=== PATIENT | male | born 1935 | race Caucasian/White ===

== ENCOUNTER → 2020-10-18 10:21 | Outpatient (CLI) | payer MEDICARE, SELFPAY ==
[2020-10-18] MEDS: COVID-19 VACC #1, MRNA(MOD) 100 MCG/0.5 ML VIAL IM (10:44)
== END ==
PROVIDERS: Visit Provider Internal Medicine
DX: Z23 Encounter for immunization (principal)
CPT/HCPCS: 0011A; 91301

== ENCOUNTER → 2020-11-16 09:48 | Outpatient (CLI) | payer MEDICARE, SELFPAY ==
[2020-11-16] MEDS: COVID-19 VACC #2, MRNA(MOD) 100 MCG/0.5 ML VIAL IM (09:58)
== END ==
PROVIDERS: Visit Provider Internal Medicine
DX: Z23 Encounter for immunization (principal)
CPT/HCPCS: 0012A; 91301

== ENCOUNTER 2021-08-12 13:19 | Emergency (ER) | payer MEDICARE, SELFPAY ==
[2021-08-12 13:34] VITALS: BP 165/79; PULSE 69; RESP 18; TEMP 36.6; O2SAT 99; BMI 25.8
--- NOTE | 2021-08-12 13:37 | DI.RAD.S_ITS ---
PROCEDURE: XR HIP W PEL IF DONE RT 2V INDICATIONS: fall with right hip pain. TECHNIQUE: AP pelvis with lateral view(s) of the right hip(s). COMPARISON: None. FINDINGS: Bones: No fractures or dislocations. Pelvic ring appears intact. No suspicious bony lesions. Soft tissues: The visualized bowel gas pattern is normal. No suspicious soft tissue calcifications. IMPRESSION: No visualized acute fracture or dislocation. However, if clinical concern and/or pain persist, short interval imaging followup in 7-10 days is recommended, as occult injury cannot be definitively excluded. Dictated by: Nuris Tsai M.D. on 08/12/2021 at 14:39 Approved by: Nuris Tsai M.D. on 08/12/2021 at 14:39
[2021-08-12 14:51] VITALS: BP 190/93; PULSE 88; RESP 16; O2SAT 98
--- NOTE | 2021-08-12 15:01 | ED.FALL ---
HPI - Fall <Fabiano Rizo PA-C - Last Filed: 08/12/21 16:38> General Chief Complaint: Fall Stated Complaint: GLF Time Seen by Provider: 08/12/21 14:46 Source: patient Mode of arrival: Ambulatory History of Present Illness HPI Narrative: Patient is an 86-year-old male presenting to the emergency department today for right hip pain. Patient states that he experienced a ground level fall approximately 1 week ago and has experienced right hip pain since then. He states that his pain worsened shortly after his fall, noting however that his pain decreased to 2-3 days following the fall. He presents today with worsening pain and states that his pain is exacerbated with movement and weight-bearing on the right lower extremity. Of note, patient states he did not his head or lose consciousness as result of the fall. No fever, chills, chest pain, cough, shortness of breath, nausea, vomiting, diarrhea, abdominal pain, dysuria, hematuria, numbness and tingling the bilateral lower extremities, or any other concerning symptoms reported. No further concerns were voiced at this time. Related Data Previous Rx's Medication Instructions Recorded baclofen 10 mg tablet 10 mg PO BID #20 tab 08/12/21 Allergies Allergy/AdvReac Type Severity Reaction Status Date / Time steroids Allergy Uncoded 08/12/21 13:34 Review of Systems <Fabiano Rizo PA-C - Last Filed: 08/12/21 16:38> Constitutional Constitutional: Denies chills, Denies fatigue, Denies fever(s), Denies frequent falls, Denies lethargy and Denies weakness Eyes Eyes: Denies loss of vision ENT Ears, Nose, Mouth, and Throat: Denies dizziness and Denies neck pain Cardiovascular Cardiovascular: Denies chest pain, Denies irregular heart rhythm, Denies lightheadedness, Denies palpitations, Denies dyspnea, Denies dyspnea on exertion and Denies orthopnea Respiratory Respiratory: Denies cough, Denies dyspnea, Denies dyspnea on exertion and Denies wheezing Gastrointestinal Gastrointestinal: Denies abdominal pain, Denies change in bowel habits, Denies diarrhea, Denies nausea and Denies vomiting Genitourinary Genitourinary: Denies hematuria, Denies flank pain, Denies urinary incontinence and Denies urinary urgency Musculoskeletal Musculoskeletal: Denies back pain, Reports arthralgias (Right hip), Denies muscle weakness, Denies neck pain, Denies numbness and Denies tingling Integumentary/Breasts Skin/Breast: Denies pruritus, Denies erythema, Denies rash and Denies wounds Neurologic Neurologic: Denies behavioral changes, Denies confusion, Denies dizziness, Denies frequent falls, Denies loss of vision, Denies numbness, Denies tingling and Denies weakness Psychiatric Psychiatric: Denies behavioral changes and Denies confusion Endocrine Endocrine: Denies fatigue and Denies palpitations Allergic/Immunologic Allergic/Immunologic: Denies wheezing Patient History <Fabiano Rizo PA-C - Last Filed: 08/12/21 16:38> Social History Smoking Status: Never smoker Smoking Status: Never smoker alcohol intake frequency: 3 or more drinks per day Substance Use Type: does not use Exam <Fabiano Rizo PA-C - Last Filed: 08/12/21 16:38> Narrative Exam Narrative: GENERAL: 86 year old patient appears stated age. Well-developed patient, in no acute distress. HEAD: Atraumatic. Normocephalic. EYES: Pupils equal round and reactive. Extraocular motions intact. No scleral icterus. No injection or drainage. ENT: Nose without bleeding, purulent drainage. Throat without erythema, tonsillar hypertrophy or exudate. Airway patent. NECK: Trachea midline. Non tender CARDIOVASCULAR: Regular rate and rhythm without murmurs, gallops, or rubs. RESPIRATORY: Clear to auscultation. Breath sounds equal bilaterally. No wheezes, rales, or rhonchi. GASTROINTESTINAL: Abdomen soft, non-tender, nondistended. EXTREMITIES: No edema or joint tenderness. Mild tenderness appreciated along the anterior right thigh. Pain elicited with resisted flexion of the right hip. BACK: Nontender without deformity or crepitance. No flank tenderness. NEURO: AOx3. SKIN: No rash or erythema of visible areas Initial Vital Signs Initial Vital Signs: Vital Signs Temperature 97.8 F 08/12/21 13:34 Pulse Rate 69 08/12/21 13:34 Respiratory Rate 18 08/12/21 13:34 Blood Pressure 165/79 H 08/12/21 13:34 Pulse Oximetry 99 08/12/21 13:34 <Brendon Badillo DO - Last Filed: 08/12/21 17:09> Initial Vital Signs Initial Vital Signs: Vital Signs Temperature 97.8 F 08/12/21 13:34 Pulse Rate 69 08/12/21 13:34 Respiratory Rate 18 08/12/21 13:34 Blood Pressure 165/79 H 08/12/21 13:34 Pulse Oximetry 99 08/12/21 13:34 Course <Fabiano Rizo PA-C - Last Filed: 08/12/21 16:38> Course Course Narrative: Back within administered. Right hip x-ray obtained. Orders Ordered: ED Orders 08/12/21 13:37 XR hip w pel if done RT 2V Stat Discontinued Medications Baclofen (Baclofen 10 Mg Tablet) 10 mg PO NOW ONE Stop: 08/12/21 15:01 Last Admin: 08/12/21 15:19 Dose: 10 mg Documented by: BLAYNE Vital Signs Vital signs: Vital Signs - 8 hr 08/12/21 13:34 08/12/21 14:51 Temperature 97.8 F Pulse Rate 69 88 Respiratory Rate 18 16 Blood Pressure 165/79 H 190/93 H Pulse Oximetry 99 98 <Brendon Badillo DO - Last Filed: 08/12/21 17:09> Orders Ordered: ED Orders 08/12/21 13:37 XR hip w pel if done RT 2V Stat Discontinued Medications Baclofen (Baclofen 10 Mg Tablet) 10 mg PO NOW ONE Stop: 08/12/21 15:01 Last Admin: 08/12/21 15:19 Dose: 10 mg Documented by: BLAYNE Vital Signs Vital signs: Vital Signs - 8 hr 08/12/21 13:34 08/12/21 14:51 Temperature 97.8 F Pulse Rate 69 88 Respiratory Rate 18 16 Blood Pressure 165/79 H 190/93 H Pulse Oximetry 99 98 MDM - Fall <Fabiano Rizo PA-C - Last Filed: 08/12/21 16:38> Imaging Data Extremity x-ray #1: Radiologist's Impression: PROCEDURE:? XR HIP W PEL IF DONE RT 2V ? INDICATIONS:? fall with right hip pain. ? TECHNIQUE:? AP pelvis with lateral view(s) of the right hip(s).? ? COMPARISON:? None. ? FINDINGS:? ? Bones:? No fractures or dislocations.? Pelvic ring appears intact.? No suspicious bony lesions.? ? Soft tissues:? The visualized bowel gas pattern is normal.? No suspicious soft tissue calcifications.? ? ? IMPRESSION:? No visualized acute fracture or dislocation. However, if clinical concern and/or pain persist, short interval imaging followup in 7-10 days is recommended, as occult injury cannot be definitively excluded. ? Dictated by: Nuris Tsai M.D. on 08/12/2021 at 14:39 ? ? Approved by: Nuris Tsai M.D. on 08/12/2021 at 14:39 ? MDM Narrative Medical decision making narrative: To consider fracture versus dislocation versus sprain versus strain. Overall physical examination, history, and imaging obtained in the emergency department today reassuring. Discussed results of x-ray with patient and informed him that no acute bony abnormality was identified. I recommended the patient continue to take Aleve for his pain, as long as he is taking his medication with food. Additionally, I recommended the patient use topical Voltaren gel over the painful area as needed. I have sent a prescription for baclofen to patient's preferred pharmacy. Patient expresses understanding and agrees to plan. I urged the importance of following up with his primary care provider for further evaluation. Strict return precautions were discussed with the patient prior to discharge. At this time patient states he would like to be discharged home and is stable for discharge. Discharge Plan Departure Patient Disposition: Home Clinical Impression: Acute pain of right hip Instructions: DI for Hip Pain Activity Restrictions/Additional Instructions: *You have been diagnosed with acute right hip pain *What to do: *Please continue to take your regular medications as directed. [X] New medication prescriptions sent to your pharmacy: [facility] - Baclofen [ ] New medication written as a paper prescription [ ] No new medications given *Please follow up with your primary care provider in 2-3 days, call for an appointment. Let them know you were seen in the Emergency Department and that we ask that you be seen in follow up. We will electronically transmit a record of today's note if your PCP is in our system. *Please apply Voltaren Gel to the painful area as needed. This is a topical nonsteroidal anti inflammatory medication to help alleviate your pain. *If you do not have a primary care provider please contact the [facility] Resource line at [phone]. They will ask some questions about your medical history and help get you set up with a doctor in the community. *Return to Emergency Department if you should have any new, worsening or concerning symptoms, such as fever greater than 101 F, shaking chills, worsening pain, persistent vomiting or other bothersome symptoms. Prescriptions: New baclofen 10 mg tablet 10 mg PO BID Qty: 20 0RF <Brendon Badillo, DO - Last Filed: 08/12/21 17:09> Cosign ED Attending Cosignature Attestation: Dr Badillo Co-Sign Statement: I was available for consultation during this patient's emergency department visit. This chart is signed by myself for administrative purposes only. I did not have direct contact with this patient during this visit. They were seen independently by the APC.
[2021-08-12] MEDS: BACLOFEN 10 MG TABLET PO (15:19)
== END 2021-08-12 15:25 | disposition home or self-care (01) ==
PROVIDERS: Emergency Provider Physician Assistant
DX: M25.551 Pain in right hip (principal); W18.30XA Fall on same level, unspecified, initial encounter
CPT/HCPCS: 73502; 99283

== ENCOUNTER → 2021-08-27 11:17 | Outpatient (CLI) | payer MEDICARE, SELFPAY ==
--- NOTE | 2021-08-27 | DI.RAD.S_ITS ---
PROCEDURE: XR HIP W PEL IF DONE RT 2V INDICATIONS: PAIN TECHNIQUE: 3 views of the hip were acquired. COMPARISON: [facility], CR, XR HIP W PEL IF DONE RT 2V, 08/12/2021, 13:48. FINDINGS: Bones: Transverse fracture through the mid right femoral neck with impaction and mild displacement. Femoral head has appropriate contour and resides in the acetabulum. Left proximal femur unremarkable. Pelvic ring intact. Soft tissues: No suspicious soft tissue calcifications or masses. Diffuse atherosclerotic vascular calcification. IMPRESSION: Impacted mid right femoral neck fracture Approved by: Syed Nolen M.D. on 08/27/2021 at 12:03
--- NOTE | 2021-08-27 11:25 | DI.RAD.S_ITS ---
PROCEDURE: XR LUMBAR SPINE 2-3V INDICATIONS: PAIN TECHNIQUE: 3 views of the lumbar spine were acquired. COMPARISON: None. FINDINGS: Bones: 5 [id number] vertebrae are present. There is normal bony alignment. No vertebral body compression fractures. No suspicious bony lesions. Diffuse disc space narrowing and hypertrophic facet joints are noted throughout the exam particularly in the lower lumbar spine. Soft tissues: Overlying bowel gas pattern is normal. No suspicious soft tissue calcifications. Atherosclerotic calcification in the abdominal aorta noted without evidence of aneurysm. IMPRESSION: Multilevel degenerative disc disease and arthropathy. No fracture or malalignment. Aortic atherosclerosis Approved by: Syed Nolen M.D. on 08/27/2021 at 11:58
--- NOTE | 2021-08-27 11:25 | DI.RAD.S_ITS ---
PROCEDURE: XR KNEE RT 3V INDICATIONS: PAIN TECHNIQUE: 3 views of the knee were acquired. COMPARISON: None. FINDINGS: Bones: No fractures or dislocations. No suspicious bony lesions. Moderate joint space narrowing noted in the medial and lateral compartments Soft tissues: No joint effusion. No suspicious soft tissue calcifications. Atherosclerotic vascular calcification noted. IMPRESSION: Moderate joint space narrowing and atherosclerotic vascular calcification Approved by: Syed Nolen M.D. on 08/27/2021 at 11:59
== END ==
PROVIDERS: PCP Student in an Organized Health Care Education/Training Program; Referring Provider Student in an Organized Health Care Education/Training Program; Visit Provider Student in an Organized Health Care Education/Training Program
DX: S72.031A Displaced midcervical fracture of right femur, initial encounter for closed fracture (principal); M51.36 Other intervertebral disc degeneration, lumbar region; M47.816 Spondylosis without myelopathy or radiculopathy, lumbar region; I70.0 Atherosclerosis of aorta; M25.551 Pain in right hip; M25.561 Pain in right knee
CPT/HCPCS: 72100; 73502; 73562

== ENCOUNTER 2021-08-30 21:45 | Inpatient (IN) | payer MEDICARE, SELFPAY ==
[2021-08-30 21:46] VITALS: BP 181/87; PULSE 77; RESP 20; TEMP 36.4; O2SAT 99
[2021-08-30 22:05] VITALS: PULSE 78; RESP 24; O2SAT 100
[2021-08-30 22:06] VITALS: BP 181/87; PULSE 76; RESP 19; O2SAT 99
--- NOTE | 2021-08-30 22:10 | ED_ITS ---
HPI - Extremity Injury (Lower) General Chief Complaint: Extremity Injury, Lower Stated Complaint: rt hip fracture Time Seen by Provider: 08/30/21 21:46 Source: patient Mode of arrival: Wheelchair History of Present Illness HPI Narrative: 86-year-old male nonsmoker with history of hypertension presents with a known right-sided hip fracture. Patient had been at the orthopedic office and had x- ray demonstrating a right hip fracture, patient was sent here to be admitted for surgery tomorrow. Patient had a fall in early July and presented for evaluation in the emergency department a week or so later. Imaging suggested no fracture and patient has been at home with his increasing right hip pain ever since. In his follow up a repeat image showed a very clear fracture. He denies any numbness, tingling or weakness. He denies any head neck or back pain. He has not take any blood thinners. He has severe pain with attempts at am bulation. He is otherwise well and free of complaint Related Data Home Medications Medication Instructions Recorded Confirmed telmisartan 40 mg tablet 40 mg PO DAILY 08/31/21 08/31/21 Allergies Allergy/AdvReac Type Severity Reaction Status Date / Time steroids Allergy Uncoded 08/12/21 13:34 Review of Systems Review of Systems Narrative: GENERAL: Denies chills, fatigue, malaise, fever, sweats. HEENT: Denies sinus pain, ear pain, sore throat, difficulty swallowing, dizziness. RESPIRATORY: Denies dyspnea, cough, wheezing, hemoptysis, sputum. CARDIOVASCULAR: Denies chest pain, palpitations, orthopnea, edema, GASTROINTESTINAL: Denies nausea, vomiting, abdominal pain, diarrhea, constipation, melena. : Denies dysuria, frequency, incontinence, hematuria, urinary retention. MUSCULOSKELETAL: See HPI SKIN: Denies rash, skin lesions, or other NEUROLOGIC: Denies weakness, headache, numbness, change in speech, confusion, seizures, incoordination. PSYCHIATRIC: No concerning psychosocial issues. 12 point review of systems is negative except for those stated above Patient History Social History household members: none Smoking Status: Never smoker alcohol intake: current Smoking Status: Never smoker alcohol intake frequency: 3 or more drinks per day Substance Use Type: does not use Exam Narrative Exam Narrative: GENERAL: [86] year old patient appears stated age. Well-developed patient, in mild distress. HEAD: Atraumatic. Normocephalic. EYES: Pupils equal round and reactive. Extraocular motions intact. No scleral icterus. No injection or drainage. ENT: Nose without bleeding, purulent drainage. Throat without erythema, tonsillar hypertrophy or exudate. Airway patent. NECK: Trachea midline. Non tender CARDIOVASCULAR: Regular rate and rhythm without murmurs, gallops, or rubs. RESPIRATORY: Clear to auscultation. Breath sounds equal bilaterally. No wheezes, rales, or rhonchi. GASTROINTESTINAL: Abdomen soft, non-tender, nondistended. EXTREMITIES: Severe right hip pain on palpation, closed, isolated and neurovascularly intact BACK: Nontender without deformity or crepitance. No flank tenderness. NEURO: AOx3. SKIN: No rash or erythema of visible areas Initial Vital Signs Initial Vital Signs: Vital Signs Temperature 97.6 F 08/30/21 21:46 Pulse Rate 77 08/30/21 21:46 Respiratory Rate 20 08/30/21 21:46 Blood Pressure 181/87 H 08/30/21 21:46 Pulse Oximetry 99 08/30/21 21:46 Course Orders Ordered: ED Orders 08/30/21 22:02 Basic Metabolic Panel Stat COVID19 -Nasal swab/Pre-Proc Stat Complete Blood Count AUTO DIFF Stat Acetaminophen (Acetaminophen 325 Mg Tablet) 650 mg PO Q6HR PRN PRN Reason: Fever/Mild Pain (1-3) Last Admin: 08/31/21 06:29 Dose: 650 mg Documented by: Admin: 08/30/21 23:57 Dose: 650 mg Documented by: SAURABH Hydrocodone Bitart/Acetaminophen (Hydrocodone/Acet 5/325 Tablet) 1 tab PO Q4HR PRN PRN Reason: Pain, Moderate (4-6) Sodium Chloride (Normal Saline 0.9%) 1,000 mls @ 100 mls/hr IV CONT CECILIO Last Admin: 08/30/21 23:58 Dose: 100 mls/hr Documented by: SAURABH Ibuprofen (Ibuprofen 600 Mg Tablet) 600 mg PO Q6HR PRN PRN Reason: Fever/Mild Pain (1-3) Ketorolac Tromethamine (Ketorolac 30 Mg/Ml Vial) 30 mg IV Q6HR PRN PRN Reason: Pain, Severe (7-10) Stop: 02/07/22 23:01 Last Admin: 08/31/21 00:25 Dose: 30 mg Documented by: SAURABH Morphine Sulfate (Morphine 2 Mg/Ml Inj) 2 mg IV Q4HR PRN PRN Reason: Pain, Moderate (4-6) Last Admin: 08/31/21 00:15 Dose: 2 mg Documented by: SAURABH Naloxone HCl (Naloxone 0.4 Mg/Ml Vial) 0.2 mg IV Q2MIN PRN PRN Reason: Opiate Reversal Ondansetron HCl (Ondansetron 4 Mg/2 Ml Inj) 4 mg IV Q8HR PRN PRN Reason: Nausea And Vomiting Oxycodone HCl (Oxycodone Ir 5 Mg Tablet) 5 mg PO Q6HR PRN PRN Reason: Pain, Moderate (4-6) Last Admin: 08/31/21 06:29 Dose: 5 mg Documented by: Admin: 08/30/21 23:57 Dose: 5 mg Documented by: SAURABH Discontinued Medications Morphine Sulfate (Morphine 2 Mg/Ml Inj) 2 mg IV NOW ONE Stop: 08/31/21 01:08 Last Admin: 08/31/21 05:22 Dose: Not Given Documented by: SAURABH Consultations Consultation #1: Dr. Paiz with Orthopedics referred the patient here, she is aware the patient plans to do his surgery tomorrow. She has been notified of his arrival and acceptance by Medicine Consultation #2: Medicine happy to accept the patient under service Vital Signs Vital signs: Vital Signs - 8 hr 08/30/21 21:46 Temperature 97.6 F Pulse Rate 77 Respiratory Rate 20 Blood Pressure 181/87 H Pulse Oximetry 99 MDM - Extremity Injury (Lower) Lab Data Result diagrams: 08/31/21 05:15 08/31/21 05:15 Labs: Lab Results 08/30/21 08/30/21 08/30/21 Range/Units 22:02 22:02 22:02 WBC 9.0 (4.5-11.0) X10^3/uL RBC 3.66 L (4.5-5.9) X10^6/uL Hgb 11.8 L (13.5-17.5) g/dL Hct 34.7 L (41-53) % MCV 95.0 (80-100) fL MCH 32.3 (26-34) PG MCHC 34.1 (30-36) % RDW 16.2 H (11.6-14.8) % Plt Count 435 H (150-400) X10^3/uL Neut % (Auto) 74.8 (50-75) % Lymph % (Auto) 11.5 L (25-40) % [place] % (Auto) 7.7 (3-14) % Eos % (Auto) 5.6 H (2-4) % Baso % (Auto) 0.4 (0-2) % Neut # (Auto) 6700 (5690-8198) /uL Lymph # (Auto) 1000 L (2311-2149) /uL [place] # (Auto) 700 (0-900) /uL Eos # (Auto) 500 H (0-450) /uL Baso # (Auto) 0 (0-100) /uL RBC Morphology See below Microcytosis 1+ H Spherocytes 1+ H Sodium 125 L (137-145) mmol/L Potassium 5.0 (3.4-5.1) mmol/L Chloride 95 L (98-107) mmol/L Carbon Dioxide 28 (22-32) mmol/L BUN 26 H (9-20) mg/dL Creatinine 1.14 (0.66-1.25) mg/dL Estimated GFR > 60.0 (>60) mL/min BUN/Creatinine Ratio 22.8 H (6-22) Glucose 106 (80-110) mg/dL Calcium 9.4 (8.4-10.2) mg/dL SARS-CoV-2 (PCR) Negative (Negative) Discharge Plan Departure Patient Disposition: Admitted As Inpatient Clinical Impression: Closed hip fracture, Acute hyponatremia Admit Date/Time: 08/30/21 22:42 Admit Provider: Melina Lee
[2021-08-30 22:21] LABS: BUN Creatinine Ratio 22.8 (6-22); Blood Urea Nitrogen 26 mg/dL (9-20); Calcium 9.4 mg/dL (8.4-10.2); Carbon Dioxide 28 mmol/L (22-32); Chloride 95 mmol/L (98-107); Estimated Glomerular Filt Rate > 60.0 mL/min (>60); Glucose 106 mg/dL (80-110); HEMOLYSIS < 15 (0-50); Sodium 125 mmol/L (137-145)
[2021-08-30 22:29] LABS: Basophils Absolute Auto 0 /uL (0-100); Basophils Percent Auto 0.4 % (0-2); COVID19 -Nasal RAPID Negative (Negative); Eosinophils Absolute Auto 500 /uL (0-450); Eosinophils Percent Auto 5.6 % (2-4); Hematocrit 34.7 % (41-53); Hemoglobin 11.8 g/dL (13.5-17.5); Lymphocytes Absolute Auto 1000 /uL (1100-4500); Lymphocytes Percent Auto 11.5 % (25-40); Mean Corpuscular HGB Conc 34.1 % (30-36); Mean Corpuscular Hemoglobin 32.3 PG (26-34); Monocytes Absolute Auto 700 /uL (0-900); Monocytes Percent Auto 7.7 % (3-14); Neutrophils Absolute Auto 6700 /uL (1500-7000); Neutrophils Percent Auto 74.8 % (50-75); Platelet Count 435 X10^3/uL (150-400); Red Blood Cell Count 3.66 X10^6/uL (4.5-5.9); Red Cell Distribution Width 16.2 % (11.6-14.8)
[2021-08-30 22:30] VITALS: BP 198/86; PULSE 72; RESP 14; O2SAT 96
[2021-08-30 22:30] LABS: Add Manual Diff / Slide Review SLIDE REVIEW; Microcytosis 1+; Spherocytes 1+
[2021-08-30 23:45] VITALS: BP 206/91; PULSE 76; RESP 18; TEMP 36.6; O2SAT 96; BMI 25.9
[2021-08-30] MEDS: ACETAMINOPHEN 325 MG TABLET 650 MG PO (23:57)
[2021-08-30] MEDS: OXYCODONE IR 5 MG TABLET PO (23:57)
[2021-08-30] MEDS: SODIUM CHLORIDE 0.9% 1,000 ML 100 ML IV (23:58)
[2021-08-31] VITALS (20 sets, daily range): BP systolic 127–178; BP diastolic 58–85; PULSE 59–86; RESP 7–18; TEMP 36.2–36.7; O2SAT 93–100; BMI 25.9
[2021-08-31] MEDS: MORPHINE 2 MG/ML INJ IV (00:15)
[2021-08-31] MEDS: KETOROLAC 30 MG/ML VIAL IV (00:25)
[2021-08-31 05:58] LABS: Add Manual Diff / Slide Review NO; Basophils Absolute Auto 100 /uL (0-100); Basophils Percent Auto 1.3 % (0-2); Eosinophils Absolute Auto 400 /uL (0-450); Eosinophils Percent Auto 6.4 % (2-4); Hemoglobin 10.8 g/dL (13.5-17.5); Lymphocytes Absolute Auto 1200 /uL (1100-4500); Lymphocytes Percent Auto 18.7 % (25-40); Mean Corpuscular HGB Conc 33.9 % (30-36); Mean Corpuscular Hemoglobin 32.1 PG (26-34); Mean Corpuscular Volume 94.9 fL (80-100); Monocytes Absolute Auto 600 /uL (0-900); Monocytes Percent Auto 9.7 % (3-14); Neutrophils Absolute Auto 4100 /uL (1500-7000); Neutrophils Percent Auto 63.9 % (50-75); Platelet Count 360 X10^3/uL (150-400); Red Blood Cell Count 3.37 X10^6/uL (4.5-5.9); Red Cell Distribution Width 16.1 % (11.6-14.8); White Blood Cell Count 6.4 X10^3/uL (4.5-11.0)
[2021-08-31 06:04] LABS: Alanine Aminotransferase 19 IU/L (<50); Albumin 3.2 g/dL (3.5-5.0); Albumin Globulin Ratio 1.1 (1.0-2.8); Alkaline Phosphatase 64 U/L (38-126); Aspartate Aminotransferase 28 IU/L (17-59); BUN Creatinine Ratio 20.6 (6-22); Bilirubin Total 0.6 mg/dL (0.2-1.3); Blood Urea Nitrogen 22 mg/dL (9-20); Calcium 9.1 mg/dL (8.4-10.2); Carbon Dioxide 29 mmol/L (22-32); Chloride 96 mmol/L (98-107); Estimated Glomerular Filt Rate > 60.0 mL/min (>60); Globulin 2.9 g/dL (1.7-4.1); Glucose 98 mg/dL (80-110); HEMOLYSIS < 15 (0-50); Potassium 4.3 mmol/L (3.4-5.1); Sodium 127 mmol/L (137-145); Total Protein 6.1 g/dL (6.3-8.2)
--- NOTE | 2021-08-31 06:21 | PM.HP.1 ---
History of Present Illness History of Present Illness Date Patient Seen: 08/31/21 Time Patient Seen: 06:21 Chief complaint: rt hip fracture Narrative: 86 yo male admitted for right hip fracture. Had an initial 1 week delayed presentation to the ED after falling hard onto his buttocks while getting out of a car. Complained of right hip pain; X-ray on 08/12/20 negative for fracture. At his outpatient follow-up appointment, reported that his hip pain had worsened and that his lower back and knee were also hurting. X-rays of all three areas completed and significant for impacted femoral neck fracture. Orthopedics was consulted on-call and patient advised to return to the hospital for admission and surgery. Patient complaining of ongoing pain in his right hip. Nursing reports that he had uncontrolled pain after being transferred from [facility] to hospital bed, has required significant narcotics overnight. Has been NPO, on bedrest. No chest pain, palpitations, shortness of breath, or nausea. Afebrile. 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 Patient History Family & Social History Social History: household members none Prior Living Arrangements House Safety & Behavioral: Feels Safe in Current Yes Environment Been Physically Hurt or No Threatened By a Person Suicidal Ideation Description None Suicide Plan Description No Plan Tobacco & Substance use: Smoking Status Never smoker alcohol intake current alcohol intake frequency 0-2 drinks per day Substance Use Type does not use Meds Home Medications and Allergies Home Medications Medication Instructions Recorded Confirmed Type telmisartan 40 mg tablet 40 mg PO DAILY 08/31/21 08/31/21 History Allergies Allergy/AdvReac Type Severity Reaction Status Date / Time steroids Allergy Uncoded 08/12/21 13:34 Review of Systems Review of Systems Narrative: All remaining ROS were reviewed and negative except as addressed. Exam Vital Signs (past 8 hours): - 08/30/21 22:30 08/30/21 23:45 08/31/21 00:00 Temperature 97.9 F Pulse Rate 72 76 Respiratory Rate 14 18 Blood Pressure 198/86 H 206/91 H Pulse Oximetry 96 96 96 08/31/21 01:45 08/31/21 02:01 08/31/21 04:00 Temperature Pulse Rate Respiratory Rate Blood Pressure 167/81 H Pulse Oximetry 96 96 Oxygen Delivery Method Room Air Oxygen Flow Rate 0 Narrative Exam Narrative: GENERAL: Alert and oriented, appearing stated age and in no acute distress. HEENT: Head normocephalic/atraumatic. Extraocular movements intact. LUNGS: Clear to ausculation bilaterally, no wheezes, rhonchi or rales. CV: Normal S1 and S2 with regular rate and rhythm, no audible murmurs, rubs or gallops. ABDOMEN: Soft, non-tender, non-distended, no organomegaly. Positive bowel sounds. EXTREMITIES: Tender to palpation over right hip, motion not tested secondary to pain. NEURO: Cranial nerves II through XII grossly intact, no focal deficits. PSYCH: Alert and oriented x 3. SKIN: No concerning lesions. Objective Labs Result Diagrams: 08/31/21 05:15 08/31/21 05:15 Labs: Laboratory Results - last 24 hr 08/30/21 08/30/21 08/30/21 22:02 22:02 22:02 WBC 9.0 RBC 3.66 L Hgb 11.8 L Hct 34.7 L MCV 95.0 MCH 32.3 MCHC 34.1 RDW 16.2 H Plt Count 435 H Neut % (Auto) 74.8 Lymph % (Auto) 11.5 L [place] % (Auto) 7.7 Eos % (Auto) 5.6 H Baso % (Auto) 0.4 Neut # (Auto) 6700 Lymph # (Auto) 1000 L [place] # (Auto) 700 Eos # (Auto) 500 H Baso # (Auto) 0 RBC Morphology See below Microcytosis 1+ H Spherocytes 1+ H Sodium 125 L Potassium 5.0 Chloride 95 L Carbon Dioxide 28 BUN 26 H Creatinine 1.14 Estimated GFR > 60.0 BUN/Creatinine Ratio 22.8 H Glucose 106 Calcium 9.4 Total Bilirubin AST ALT Alkaline Phosphatase Total Protein Albumin Globulin Albumin/Globulin Ratio SARS-CoV-2 (PCR) Negative 08/31/21 08/31/21 05:15 05:15 WBC 6.4 RBC 3.37 L Hgb 10.8 L Hct 32.0 L MCV 94.9 MCH 32.1 MCHC 33.9 RDW 16.1 H Plt Count 360 Neut % (Auto) 63.9 Lymph % (Auto) 18.7 L [place] % (Auto) 9.7 Eos % (Auto) 6.4 H Baso % (Auto) 1.3 Neut # (Auto) 4100 Lymph # (Auto) 1200 [place] # (Auto) 600 Eos # (Auto) 400 Baso # (Auto) 100 RBC Morphology Microcytosis Spherocytes Sodium 127 L Potassium 4.3 Chloride 96 L Carbon Dioxide 29 BUN 22 H Creatinine 1.07 Estimated GFR > 60.0 BUN/Creatinine Ratio 20.6 Glucose 98 Calcium 9.1 Total Bilirubin 0.6 AST 28 ALT 19 Alkaline Phosphatase 64 Total Protein 6.1 L Albumin 3.2 L Globulin 2.9 Albumin/Globulin Ratio 1.1 SARS-CoV-2 (PCR) Assessment & Plan Assessment & Plan narrative: 1. Right femoral neck fracture, acute Plan: Dr. Paiz consulting, surgery today. 2. Hyponatremia, chronic, baseline 130 Plan: Patient is just below his usual baseline. Have been giving NS at 100 cc overnight, sodium trending up, will continue to trend labs. 3. Hypertension, acute on chronic secondary to pain Plan: Patient has previously been on telmisartan but has not required that for over 5 years. Baseline BP is 130-140/80. Will treat pain and trend BPs. If needing coverage, will plan for diltiazem as he has had some atrial bigeminy in the past that has been worked up by Dr. Boothe. Goal BP < 140/90. Will update echo after discharge. 4. Anemia, normocytic/normochromic, new Plan: Will start work-up with next lab draw. 5. Protein calorie malnutrition, new Plan: Nutrition consult to maximize healing. Code: Full FEN: NS at 100 cc DVT prophylaxis: SCDs COVID: negative Dispo: Anticipate 2 nights. Quality VTE Deep Vein Thrombosis/Pulmonary Embolism Present on Admission: No
[2021-08-31] MEDS: OXYCODONE IR 5 MG TABLET PO (06:29)
[2021-08-31] MEDS: ACETAMINOPHEN 325 MG TABLET 650 MG PO ×3 (06:29→21:14)
--- NOTE | 2021-08-31 07:37 | PC.ADMIT ---
[id number] Admission Note: Pt arrived on floor in minimal distress, no complaints of pain. Moved from rney to bed using slider board. Pain immediately increased. BP on admit 206/91, other VS WNL. Asymptomatic. Pain continued to increased, gave 5 mg oxy @ 2357 and 650 mg tylenol @ 2357. Pt's pain increased. Gave 2 mg IV morphine at 0015. No change in pain. Gave 30 mg toradol IVP at 0025. No change in pain. BP 229/110. Contacted aircraft air conditioning mechanic, rec'd order for 1 time dose of 2 mg morphine. Entered pt's room to reassess, pt reports pain greatly reduced. This RN discussed holding additional dose of morphine, pt agreeable. BP 167/81. The patient,Melchor Schofield,86 y/o, was given written information regarding hospital policies, unit procedures and contact persons. Patient's smoking status: Never smoker. Vital Signs - 8 hr 08/30/21 23:45 08/31/21 00:00 08/31/21 01:45 Temperature 97.9 F Pulse Rate 76 Respiratory Rate 18 Blood Pressure 206/91 H 167/81 H Pulse Oximetry 96 96 08/31/21 02:01 08/31/21 04:00 08/31/21 05:25 Temperature 98.1 F Pulse Rate 86 Respiratory Rate 18 Blood Pressure 166/85 H Pulse Oximetry 96 96
--- NOTE | 2021-08-31 08:44 | CM.DANOTE ---
DCP: Case received, EMR reviewed and met with patient. Introduced self and role. Was able to obtain information regarding patient's baseline activity status as well as his current living situation. DCP assessment completed with information currently available. Patient is an 86 year old male who admitted yesterday evening to the care of the hospitalist team. PCP: Dr. Lee. Payer: confirmed: Medicare/[employer]. Patient came to the hospital via private vehicle sent by his primary care provider for a hip fracture. According to notes, patient had a fall approximately on Aug 02, he slipped getting out of his car onto his buttocks. He was ambulatory, but had increased pain. He had an x-ray near that time which showed no fracture. He developed more pain as time went on, and had seen his primary care provider and diagnosed with impacted femoral neck fracture. Patient will be having surgery for repair. Met with patient in his room. He is alert and oriented, pleasant. Confirmed that he resides in [place] alone, he is a . He drives at his baseline, is independent, and does use a cane as needed. Asked patient if anyone could stay with him post surgery, and he mentioned that he is planning on staying with his daughter, Mercy, who lives in [facility]. He indicated that he also has a son, but he does not drive. P: DCP to continue to follow. Will see how patient does post surgery and with P.T. He does have Medicare, if [place] [facility] is needed. Sandra Keller RN/Anode Worker Discharge Planning/Care Management CM Discharge Assessment Start: 08/31/21 08:42 Freq: Status: Active Protocol: Document 08/31/21 08:42 (Rec: 08/31/21 08:44 [id number]) Discharge Planning Assessment Assigned Bursar Sandra Keller RN/Anode Worker Advance Directives? Yes Advance Directives on File Yes History Provided By Patient,Medical Record Prior Living Arrangements House Household Members none Type of transporation used prior to Drives own vehicle admit Independent with ADL's Yes Is patient alert and oriented? Yes DME Already Rented / Owned FWW / Walker,Cane Discharge Plan Home Transportation Arrangement Family. If patient does need skilled, facility Referrals Initiated Other Additional Comment Patient has not yet had surgery. Will see how he does after surgery, and with P.T. post surgical. Whiteboard Updated in Patient Room with Yes name and ext. # of Bursar Review Status In Process Next Review Type Continued Stay Review
--- NOTE | 2021-08-31 08:50 | PM.HP.1 ---
History of Present Illness History of Present Illness Date Patient Seen: 08/31/21 Time Patient Seen: 09:00 Date of Onset of Symptoms: 08/12/21 Chief complaint: rt hip fracture Narrative: This is 86 year old and who fell on the ice on 2021. He was seen at the emergency room sent home. Had repeat x-rays on 08/27/2021. Orthopedic consultation was requested last night from his primary care practitioner. X-rays were reviewed which showed evidence of a right femoral neck fracture with gross with the placement. I recommended that he report to the emergency room for probable admission. He notes Patient History Family & Social History Social History: household members none Prior Living Arrangements House Safety & Behavioral: Feels Safe in Current Yes Environment Been Physically Hurt or No Threatened By a Person Suicidal Ideation Description None Suicide Plan Description No Plan Tobacco & Substance use: Smoking Status Never smoker alcohol intake current alcohol intake frequency 0-2 drinks per day Substance Use Type does not use Meds Home Medications and Allergies Home Medications Medication Instructions Recorded Confirmed Type telmisartan 40 mg tablet 40 mg PO DAILY 08/31/21 08/31/21 History Allergies Allergy/AdvReac Type Severity Reaction Status Date / Time steroids Allergy Uncoded 08/12/21 13:34 Review of Systems Review of Systems Narrative: Denies any recent numbness or tingling, has not been lightheaded short of breath or had any new chest pain. He has been having significant problems ambulating due to right hip pain. Exam Vital Signs (past 8 hours): - 08/31/21 01:45 08/31/21 02:01 08/31/21 04:00 Temperature Pulse Rate Respiratory Rate Blood Pressure 167/81 H Pulse Oximetry 96 96 08/31/21 05:25 Temperature 98.1 F Pulse Rate 86 Respiratory Rate 18 Blood Pressure 166/85 H Pulse Oximetry Oxygen Delivery Method Room Air Oxygen Flow Rate 0 Narrative Exam Narrative: HEENT is benign, lungs clear, cor shows irregular beats but adequately controlled rate, no murmur, abdomen soft and benign, is alert he is oriented he has a supple neck, right lower extremity shows shortening of the right lower extremity he can fire his toe flexors and extensors he does have pain with right hip range of motion Luana skin shows a generalized rash which she says is chronic and nerve related, calves are soft bilaterally Objective Labs Result Diagrams: 08/31/21 05:15 08/31/21 05:15 Labs: Laboratory Results - last 24 hr 08/30/21 08/30/21 08/30/21 22:02 22:02 22:02 WBC 9.0 RBC 3.66 L Hgb 11.8 L Hct 34.7 L MCV 95.0 MCH 32.3 MCHC 34.1 RDW 16.2 H Plt Count 435 H Neut % (Auto) 74.8 Lymph % (Auto) 11.5 L [place] % (Auto) 7.7 Eos % (Auto) 5.6 H Baso % (Auto) 0.4 Neut # (Auto) 6700 Lymph # (Auto) 1000 L [place] # (Auto) 700 Eos # (Auto) 500 H Baso # (Auto) 0 RBC Morphology See below Microcytosis 1+ H Spherocytes 1+ H Sodium 125 L Potassium 5.0 Chloride 95 L Carbon Dioxide 28 BUN 26 H Creatinine 1.14 Estimated GFR > 60.0 BUN/Creatinine Ratio 22.8 H Glucose 106 Calcium 9.4 Total Bilirubin AST ALT Alkaline Phosphatase Total Protein Albumin Globulin Albumin/Globulin Ratio SARS-CoV-2 (PCR) Negative 08/31/21 08/31/21 05:15 05:15 WBC 6.4 RBC 3.37 L Hgb 10.8 L Hct 32.0 L MCV 94.9 MCH 32.1 MCHC 33.9 RDW 16.1 H Plt Count 360 Neut % (Auto) 63.9 Lymph % (Auto) 18.7 L [place] % (Auto) 9.7 Eos % (Auto) 6.4 H Baso % (Auto) 1.3 Neut # (Auto) 4100 Lymph # (Auto) 1200 [place] # (Auto) 600 Eos # (Auto) 400 Baso # (Auto) 100 RBC Morphology Microcytosis Spherocytes Sodium 127 L Potassium 4.3 Chloride 96 L Carbon Dioxide 29 BUN 22 H Creatinine 1.07 Estimated GFR > 60.0 BUN/Creatinine Ratio 20.6 Glucose 98 Calcium 9.1 Total Bilirubin 0.6 AST 28 ALT 19 Alkaline Phosphatase 64 Total Protein 6.1 L Albumin 3.2 L Globulin 2.9 Albumin/Globulin Ratio 1.1 SARS-CoV-2 (PCR) x-rays shows a grossly displaced right femoral neck fracture with shortening on films from 08/27/2020. Films from 08/12/20 show crack in the mid cervical femoral neck region Assessment & Plan Assessment and plan (1) Closed hip fracture: Status: Acute (2) Acute hyponatremia: Status: Acute Plan Recommended a right hip unipolar. The procedure alternatives risks benefits and complications were discussed in detail. He did not have symptoms in his right hip prior to the fall and the fracture. He can go home with his daughter who lives in [place] and there is an additional supportive adult available. The procedure alternatives risks benefits and complications were discussed in detail are going to proceed with that later today. Time Spent With Patient Critical Care time: I spent a total of [] minutes of critical care time on this patient's care today; this time is exclusive of procedural time. Quality VTE Deep Vein Thrombosis/Pulmonary Embolism Present on Admission: No
--- NOTE | 2021-08-31 08:51 | PT-IP ANOTE ---
Pt with R hip fx and is scheduled for surgery today. PT eval received but will d/c PT order at this time and will await new PT eval order post-op when pt is appropriate to participate with PT.
--- NOTE | 2021-08-31 08:53 | OT.IPNOTE ---
Pt having sx today therefore discharge OT orders.
--- NOTE | 2021-08-31 09:50 | P.OP_ITS ---
Operative Date/Time/Diagnoses Date of procedure: 08/31/21 Time of procedure: 11:30 Pre-op diagnosis: Right femoral neck fracture Post-op diagnosis: same Procedure & Clinicians Procedure: Right hip unipolar Same procedure as scheduled: Yes Indications: This 86-year-old who fell and sustained a right femoral neck fracture. Small the operating room for right hip unipolar. The procedure alternatives risks benefits and complications were discussed in detail. Surgeon: Lissette Paiz Strategy Lead: Sabina Drummond Anesthesia Type: General Operative Notes Findings: Displaced right femoral neck fracture, adequate stability, adequate bone Closure Type: primary Specimen(s): none sent Prosthetic devices, grafts, tissues, transplants, or devices: Paiz and Nephew Synergy cemented size 13 synergy Paiz and Nephew, size 50 unipolar head, +0 neck Applied: drain(s) Estimated Blood Loss (mL): 250 Blood products transfused: none Procedure in detail: The patient was seen in the pre-operative area, where the patient identified the right hip as the operative site and this was marked with my initials. The patient received pre-operative antibiotics and was taken to the operating room and placed on the operative table in the supine position after satisfactory anesthesia. A time piece repairer out was performed. Patient was placed in the lateral decubitus position and all bony prominences were carefully padded and the arms were appropriately position. The right lower extremity was prepared from the ankle to the iliac crest with ChloroPrep in the usual fashion and draped through sterile drapes. The hip was approached through posterolateral approach. Dissection was carried out down through skin and subcutaneous tissues. The fascia was opened. Gelpi retractors were placed. A Charnley retractor was placed. A small amount of inflamed bursa was resected. The piriformis was identified and protected. The other short external rotators and capsule were carefully stripped from the posterior aspect of the femur. They were tagged and carefully retracted. The femoral neck was brought up and an osteotomy was made of the residual femoral neck approximately 1 fingerbreadth above the lesser trochanter. The head was removed without difficulty. It was carefully sized. The acetabulum was meticulously irrigated with normal saline. There were [mild] changes in the acetabulum. The acetabulum was carefully protected with an E tape. The canal was opened with a box cutting osteotome, followed by a T-handled reamer and a lateralizing reamer. The tapered reamers were then used, followed by sequential broaching. A trial head and neck were then placed and the hip relocated and checked for leg length and stability. The patient was stable in the position of sleep, of squatting, and could be put through a range of motion with 45 degrees internal rotation without dislocation. At 90 degrees flexion, internal rotation to 80?was possible before dislocation. This was felt to be satisfactory and the appropriate components were opened, and the trials were removed. The femoral canal was sized and a distal cement restrictor was placed. The bone was meticulously cleaned with pulse lavage. The canal was packed with vaginal packing with epinephrine. Antibiotics cement was mixed and carefully pressurized into the femoral canal. The femoral component was placed without difficulty. A repeat trial reduction showed good range of motion and stability. We did a brief Betadine soak after the cement had hardened. Patient had good range of motion and stability. The final head and neck were placed after carefully irrigating the wound. The capsulomuscular flap was then repaired to the greater trochanter though an awl hole using the tag sutures. The short external rotators were repaired with black braided nylon. A deep drain was placed and brought out anteriorly. The fascia kavon was closed with black braided nylon. A subcutaneous drain was placed. The subcutaneous layer was closed with interrupted 3-0 Vicryl, and the skin with a running 3-0 V-Lock suture and Steri Strips. An Aquacel Ag dressing was applied and the patient was taken to recovery having tolerated the procedure well. Complications: none Post-operative Condition: stable Disposition: Acute Care Plan for aftercare: The patient will be maintained on a standard total hip replacement protocol with weight bearing as tolerated and posterior hip precautions. The patient will receive Aspirin and sequential compression devices for DVT prophylaxis. The patient will be discharged home when safe for the home environment.
[2021-08-31] MEDS: VANCOMYCIN 1,000 MG/200 ML PIGGYBACK 200 MG IV (10:46)
[2021-08-31] MEDS: LACTATED RINGERS 1,000 ML 42 ML IV ×2 (11:15→13:14)
[2021-08-31] MEDS: CEFAZOLIN 2 GM/20 ML SYRINGE IV ×2 (12:41→21:15)
[2021-08-31] MEDS: TRANEXAMIC ACID 1,000 MG VIAL 2000 MG INJ ×2 (12:46→14:11)
[2021-08-31] MEDS: BUPIVACAINE 0.25% (PF) 60 ML, EPINEPHrine 0.3 MG INJ (12:54)
[2021-08-31] MEDS: BUPIVACAINE LIPOSOME 266 MG/20 ML VIAL INJ (12:54)
--- NOTE | 2021-08-31 12:59 | SUR.OPER ---
Lateral on padded OR bed. Gel axillary roll. Arms secured on padded armboard with pillow supporting top arm. Padded hip positioner braces x4 - anterior and posterior chest and pelvis. Additional gel pad used anterior pelvis. Gel pad under bottom leg from knee to foot and secured with tape over sheet.
--- NOTE | 2021-08-31 13:07 | SUR.OPER ---
Patient's upper denture and lower partial removed in OR and placed in denture cup with patient sticker. Denture cup taken with patient to PACU.
--- NOTE | 2021-08-31 14:57 | DI.RAD.S_ITS ---
PROCEDURE: XR HIP W PEL IF DONE RT 2V INDICATIONS: POST OP LENNY-ARTHROPLASTY TECHNIQUE: AP pelvis with lateral view of the right hip. COMPARISON: [facility], CR, XR HIP W PEL IF DONE RT 2V, 08/27/2021, 11:22. FINDINGS: Bones: There are postsurgical changes status post right hip hemiarthroplasty. Prosthesis appears in expected alignment. Pelvic ring appears intact. No associated fractures or suspicious periprosthetic lucencies. Soft tissues: Overlying right periarticular postsurgical changes are demonstrated including soft tissue edema and soft tissue gas. IMPRESSION: 1. Expected postsurgical changes status post right hip hemiarthroplasty. Dictated by: Ramos Peguero M.D. on 08/31/2021 at 15:45 Approved by: Ramos Peguero M.D. on 08/31/2021 at 15:52
[2021-08-31] MEDS: LACTATED RINGERS 1,000 ML 125 ML IV (17:00)
[2021-08-31] MEDS: IBUPROFEN 400 MG TABLET PO ×2 (17:01→21:14)
--- NOTE | 2021-08-31 19:28 | PC.NURSE ---
Pt was A&OX3 this a.m. with pain well controlled. He was taken to preop at approximately 1000 via bed returned from PACU at 1600 this afternoon. A&Ox3, Denies numbness/tingling to BLE's, Dressing to posterior R hip aquacel C/D/I and he reports pain tolerable. No n/v and he tolerates dinner well. VSS, afebrile on RA. Voiding adequately. LR at 125ml/hr. Hip precautions, bed alarm and call light in reach.
[2021-08-31] MEDS: ASPIRIN EC 81 MG TABLET PO (21:14)
[2021-08-31] MEDS: DOCUSATE 100 MG CAPSULE PO (21:14)
[2021-09-01] VITALS (7 sets, daily range): BP systolic 136–160; BP diastolic 67–88; PULSE 62–86; RESP 14–20; TEMP 36.6–37.2; O2SAT 95–99
[2021-09-01] MEDS: IBUPROFEN 400 MG TABLET PO ×5 (00:53→21:14)
[2021-09-01] MEDS: LACTATED RINGERS 1,000 ML 125 ML IV (01:01)
[2021-09-01] MEDS: CEFAZOLIN 2 GM/20 ML SYRINGE IV (04:57)
[2021-09-01 05:41] LABS: Reticulocyte Count, Percent 1.1 % (0.9-2.6)
[2021-09-01 05:45] LABS: Add Manual Diff / Slide Review NO; Basophils Absolute Auto 100 /uL (0-100); Basophils Percent Auto 1.1 % (0-2); Eosinophils Absolute Auto 800 /uL (0-450); Eosinophils Percent Auto 8.8 % (2-4); Hematocrit 29.2 % (41-53); Hemoglobin 10.1 g/dL (13.5-17.5); Lymphocytes Absolute Auto 800 /uL (1100-4500); Lymphocytes Percent Auto 9.7 % (25-40); Mean Corpuscular HGB Conc 34.4 % (30-36); Mean Corpuscular Hemoglobin 32.7 PG (26-34); Mean Corpuscular Volume 94.9 fL (80-100); Monocytes Absolute Auto 400 /uL (0-900); Monocytes Percent Auto 4.8 % (3-14); Neutrophils Absolute Auto 6400 /uL (1500-7000); Neutrophils Percent Auto 75.6 % (50-75); Platelet Count 341 X10^3/uL (150-400); Red Blood Cell Count 3.08 X10^6/uL (4.5-5.9); Red Cell Distribution Width 16.3 % (11.6-14.8); White Blood Cell Count 8.5 X10^3/uL (4.5-11.0)
[2021-09-01 05:49] LABS: Alanine Aminotransferase 19 IU/L (<50); Albumin 2.8 g/dL (3.5-5.0); Alkaline Phosphatase 59 U/L (38-126); Aspartate Aminotransferase 37 IU/L (17-59); BUN Creatinine Ratio 18.6 (6-22); Bilirubin Total 0.7 mg/dL (0.2-1.3); Blood Urea Nitrogen 18 mg/dL (9-20); Calcium 8.4 mg/dL (8.4-10.2); Carbon Dioxide 28 mmol/L (22-32); Chloride 97 mmol/L (98-107); Estimated Glomerular Filt Rate > 60.0 mL/min (>60); Globulin 2.7 g/dL (1.7-4.1); Glucose 107 mg/dL (80-110); HEMOLYSIS < 15 (0-50); Potassium 4.2 mmol/L (3.4-5.1); Sodium 127 mmol/L (137-145); Total Protein 5.5 g/dL (6.3-8.2)
[2021-09-01 06:23] LABS: Ferritin 349 ng/mL (18-464)
[2021-09-01 06:54] LABS: Folate 8.6 ng/mL (2.76-20.0); Vitamin B12 804 pg/mL (239-931)
--- NOTE | 2021-09-01 07:00 | PM.PN.1 ---
Subjective Subjective Date Patient Seen: 09/01/21 Time Patient Seen: 07:00 Interval history: Uneventful night. Pain improved after surgery, just using ibupofren. Surgery has advanced diet, tolerating well. Patient denies any nausea or vomiting. Good appetite. Has not ambulated yet. Blood pressures have been up. Does not want to go to SNF. Exam Vital Signs (past 8 hours): - 09/01/21 00:30 09/01/21 05:01 Temperature 97.9 F 97.9 F Pulse Rate 86 68 Respiratory Rate 18 20 Blood Pressure 136/84 157/83 H Pulse Oximetry 99 95 Oxygen Delivery Method Room Air Oxygen Flow Rate 0 Narrative Exam Narrative: GENERAL:? Alert and oriented, appearing stated age and in no acute distress. HEENT:? Head normocephalic/atraumatic.? Extraocular movements intact. LUNGS:? Clear to ausculation bilaterally, no wheezes, rhonchi or rales. CV:? Normal S1 and S2 with regular rate and rhythm, no audible murmurs, rubs or gallops. ABDOMEN:? Soft, non-tender, non-distended, no organomegaly.? Positive bowel sounds. EXTREMITIES:? Right hip dressing in place, c/d/i. NEURO:? Cranial nerves II through XII grossly intact, no focal deficits. PSYCH:? Alert and oriented x 3. SKIN:? Keratotic, erythematous rash, left neck and shoulder. Objective Labs Result Diagrams: 09/01/21 05:11 09/01/21 05:11 Labs: Laboratory Results - last 24 hr 09/01/21 09/01/21 09/01/21 05:11 05:11 05:11 WBC RBC Hgb Hct MCV MCH MCHC RDW Plt Count Neut % (Auto) Lymph % (Auto) Davidson % (Auto) Eos % (Auto) Baso % (Auto) Neut # (Auto) Lymph # (Auto) Davidson # (Auto) Eos # (Auto) Baso # (Auto) Percent Retic 1.1 Sodium Potassium Chloride Carbon Dioxide BUN Creatinine Estimated GFR BUN/Creatinine Ratio Glucose Calcium Iron 23 L Transferrin 146 L Ferritin 349 Total Bilirubin AST ALT Alkaline Phosphatase Total Protein Albumin Globulin Albumin/Globulin Ratio 09/01/21 09/01/21 05:11 05:11 WBC 8.5 RBC 3.08 L Hgb 10.1 L Hct 29.2 L MCV 94.9 MCH 32.7 MCHC 34.4 RDW 16.3 H Plt Count 341 Neut % (Auto) 75.6 H Lymph % (Auto) 9.7 L Davidson % (Auto) 4.8 Eos % (Auto) 8.8 H Baso % (Auto) 1.1 Neut # (Auto) 6400 Lymph # (Auto) 800 L Davidson # (Auto) 400 Eos # (Auto) 800 H Baso # (Auto) 100 Percent Retic Sodium 127 L Potassium 4.2 Chloride 97 L Carbon Dioxide 28 BUN 18 Creatinine 0.97 Estimated GFR > 60.0 BUN/Creatinine Ratio 18.6 Glucose 107 Calcium 8.4 Iron Transferrin Ferritin Total Bilirubin 0.7 AST 37 ALT 19 Alkaline Phosphatase 59 Total Protein 5.5 L Albumin 2.8 L Globulin 2.7 Albumin/Globulin Ratio 1.0 [facility] Social History household members: family and none Smoking Status: Former smoker alcohol intake: current Assessment & Plan Assessment & Plan narrative: 1.? Right femoral neck fracture, acute Plan:? Status post right hip unipolar by Dr. Paiz, routine post-op care per surgery. 2.? Hyponatremia, chronic, baseline 130 -125 --> 127 --> 127 Plan:? Patient is just below his usual baseline.? Continue LR at 125 cc and trend labs. 3.? Hypertension, acute on chronic secondary to pain, improving Plan:? Patient has previously been on telmisartan but has not required that for over 5 years.? Baseline BP is 130-140/80. BP's uncontrolled in the hospital. Surgical team ordered losartan, bit will discontinue that in favor of diltiazem as he has had some atrial bigeminy in the past that has been worked up by Dr. Boothe. Dr. Kenny recommended CCB if medication needed.? Goal BP < 140/90.? Will update echo after discharge. 4.? Anemia, normocytic/normochromic, new -Likely secondary to inflammation Plan:? Treating underlying fracture, will follow-up with CBC in outpatient setting in 3 months. 5.? Protein calorie malnutrition, new Plan:? Nutrition consulting. 6. Spongiotic dermatitis, chronic Plan: Home bactroban and betamethasone BID. Code:? Full FEN:? LR at 125 cc DVT prophylaxis:? SCDs COVID:? negative Dispo:? Anticipate 1-2 more nights. Patient is able to get almost 24/7 care at home. Daughter is a chiropractor. He has a strong preference for discharge to home with home health PT as his was locked into SNF during COVID. Told him that I support this and will coordinate with discharge planning for the same. Quality VTE Deep Vein Thrombosis/Pulmonary Embolism Present on Admission: No
--- NOTE | 2021-09-01 08:21 | P.PN_ITS ---
Subjective Subjective Date Patient Seen: 09/01/21 Time Patient Seen: 08:22 Interval history: Patient states his right hip pain is mild. Denies fever or chills. No nausea or vomiting. Patient has been able to urinating in the bedside urinal. Patient lives alone. States his son and daughter are both working and would not be available to assist him today. He may be able to have his son her daughter helped him out tomorrow. Exam Vital Signs (past 8 hours): - 09/01/21 00:30 09/01/21 05:01 Temperature 97.9 F 97.9 F Pulse Rate 86 68 Respiratory Rate 18 20 Blood Pressure 136/84 157/83 H Pulse Oximetry 99 95 Oxygen Delivery Method Room Air Oxygen Flow Rate 0 Narrative Exam Narrative: 86-year-old male resting comfortably in bed in no apparent distress. Right hip dressing is Clean, dry, intact.. Motor functions intact bilateral lower extremities. Sensation grossly intact to light touch bilateral lower extremiti es. Const General: cooperative Nutritional Appearance: average body habitus Orientation: alert Objective Labs Result Diagrams: 09/01/21 05:11 09/01/21 05:11 Labs: Laboratory Results - last 24 hr 09/01/21 09/01/21 09/01/21 05:11 05:11 05:11 WBC RBC Hgb Hct MCV MCH MCHC RDW Plt Count Neut % (Auto) Lymph % (Auto) Edmunds % (Auto) Eos % (Auto) Baso % (Auto) Neut # (Auto) Lymph # (Auto) [place] # (Auto) Eos # (Auto) Baso # (Auto) Percent Retic 1.1 Sodium Potassium Chloride Carbon Dioxide BUN Creatinine Estimated GFR BUN/Creatinine Ratio Glucose Calcium Iron 23 L Transferrin 146 L Ferritin 349 Total Bilirubin AST ALT Alkaline Phosphatase Total Protein Albumin Globulin Albumin/Globulin Ratio Vitamin B12 804 Folate 8.6 09/01/21 09/01/21 05:11 05:11 WBC 8.5 RBC 3.08 L Hgb 10.1 L Hct 29.2 L MCV 94.9 MCH 32.7 MCHC 34.4 RDW 16.3 H Plt Count 341 Neut % (Auto) 75.6 H Lymph % (Auto) 9.7 L Ed[place]ds % (Auto) 4.8 Eos % (Auto) 8.8 H Baso % (Auto) 1.1 Neut # (Auto) 6400 Lymph # (Auto) 800 L [place] # (Auto) 400 Eos # (Auto) 800 H Baso # (Auto) 100 Percent Retic Sodium 127 L Potassium 4.2 Chloride 97 L Carbon Dioxide 28 BUN 18 Creatinine 0.97 Estimated GFR > 60.0 BUN/Creatinine Ratio 18.6 Glucose 107 Calcium 8.4 Iron Transferrin Ferritin Total Bilirubin 0.7 AST 37 ALT 19 Alkaline Phosphatase 59 Total Protein 5.5 L Albumin 2.8 L Globulin 2.7 Albumin/Globulin Ratio 1.0 Vitamin B12 Folate [facility] Social History household members: family and none Smoking Status: Former smoker alcohol intake: current Assessment & Plan Post-op Postoperative Procedures: Procedures Operation Date: 08/31/21 11:00 Actual Procedure Side Surgeon p Hip Hemiarthroplasty Right Lissette Paiz MD Postoperative day: 1 Postoperative status: doing well Postoperative status narrative: Stable status post right hip unipolar Postoperative plan narrative: Mobilize with physical therapy Weight-bearing as tolerated, posterior hip precautions Multimodal pain management Discharge likely September 02 if patient able to range assistance from his son or daughter. Quality VTE Deep Vein Thrombosis/Pulmonary Embolism Present on Admission: No
[2021-09-01 08:23] LABS: Iron 23 ug/dL (49-181); Transferrin 146 mg/dL (206-381)
[2021-09-01 08:31] LABS: Percent Iron Saturation 16 % (20-50)
[2021-09-01] MEDS: ASPIRIN EC 81 MG TABLET PO ×2 (09:35→21:14)
[2021-09-01] MEDS: DOCUSATE 100 MG CAPSULE PO ×2 (09:35→21:14)
[2021-09-01] MEDS: ACETAMINOPHEN 325 MG TABLET 650 MG PO ×3 (09:35→21:14)
[2021-09-01] MEDS: SODIUM CHLORIDE 0.9% FLUSH 10 ML IV ×2 (09:36→21:15)
--- NOTE | 2021-09-01 09:45 | PT.IIE ---
Current Diagnoses Hypo-osmolality and hyponatremia (08/30/21) Fracture of unspecified part of neck of unspecified femur, initial encounter for closed fracture (08/30/21) Surgery Performed Operation Date: 08/31/21 11:00 Actual Procedures p Hip Hemiarthroplasty(Right) - Lissette Paiz MD Physical Therapy Inpatient Evaluation/Re-Eval M1 PT/OT-IP Prior Functional Status Start: 09/01/21 12:47 Freq: NEEDED Status: Active Protocol: Document 09/01/21 09:45 AB (Rec: 09/01/21 13:27 AB [email or web address]) Medical Review Prior Functional Status Medical History Reviewed Yes Communication able to make needs known Mobility and Gait pt stated that he broke his hip last Aug 12 and has been using a standard walker for mobility since then. prior to that, pt is independent with all mobilities and ambulation without AD. Social History Household Members none Living Arrangements House Number of Floors (Floors) Two Floors Number of Stairs To Enter/Railing? pt can stay on main level of the house Home Environment Standard Height Toilet,Walk in Shower Home Equipment Raised Toilet Seat w/Armrests, Hand Held Shower,Grab Bars In Shower Additional Social History Comment pt has a standard walker pt stated that his son will stay to assist him Sun thru Th and will be by himself Fri and Sat M2 PT-IP Current Condition Start: 09/01/21 12:47 Freq: NEEDED Status: Active Protocol: Document 09/01/21 09:45 AB (Rec: 09/01/21 13:27 AB [email or web address]) Physical Therapy Current Condition Current Condition Evaluation Date 09/01/21 Treatment Diagnosis R hip fx s/o hemiarthroplasty, difficulty in walking Onset Date 08/30/21 M3 PT-IP Subjective Start: 09/01/21 12:47 Freq: NEEDED Status: Active Protocol: Document 09/01/21 09:45 AB (Rec: 09/01/21 13:27 AB [email or web address]) Subjective Physical Therapy Visit Type Type Initial Evaluation Visit Start Time 09:45 Visit Stop Time 10:55 Total Visit Minutes 70 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 Therapy Pain Assessment Pain When Pain Assessed At Rest Pain Present Pain Present Pain Reported Location Right Hip Scale Used stated just soreness M4 PT-IP Mobility and Gait Start: 09/01/21 12:47 Freq: NEEDED Status: Active Protocol: Document 09/01/21 09:45 AB (Rec: 09/01/21 13:27 AB [id number]) PT-Bed Mobility Assessment Supine to Sit Supine to Sit Maximum Assistance PT-Transfer Assessment Sit to and From Stand Sit to and from Stand Minimal Assistance,Moderate Assistance,1 Person Assistance ,Use of Upper Extremities Equipment Transfer Assistive Device Gait Belt,Front Wheeled Walker Orthotic/Prosthetic Devices or Brace: No Transfers Transfer Destination Chair Transfer Technique Stand Step Pivot Transfer Ability Level of Assist Minimal Assistance,Moderate Assistance,1 Person Assistance ,Use of Upper Extremities Comments Mobility Comments educated pt on posterior hip precautions. able to recall 1/3 and needs cues. completed supine to sit max A and max cues. able to sit on EOB CGA. completed sit to stand from NEIDA mod A and cues. ambulated in room mod A ~ 20 ft using FWW. pt sat on chair and rested. completed sit to stand from chair min A and cues for precautions. pt agreed to stay up on chair. informed pt regarding level of assistance needed and pt refused to go to SNF. set up caregiver training at 1030 am tomorrow. stated that he will call his daughter for training tomorrow. call light and table placed within reach. Gait Assessment Gait Gait Assistance Required: Minimum Assistance,Moderate Assistance Distance (Feet) 25 Able to Maintain Weight Bearing Status Yes During Gait Assistive Devices Assistive Device Gait Belt,Front Wheeled Walker Orthotic/Prosthetic Devices or Brace: No Gait Deviations General Gait Pattern Decreased Stride Length, Decreased Feet Clearance,Step- to Gait Factors Limiting Gait Function Factors Limiting Gait Function Decreased Activity Tolerance, Decreased Strength,Limited Range of Motion,Pain,Poor Balance,Poor Safety Awareness PT-Balance Assessment Sitting Balance and Reactions Static Sitting Balance Ability Good Dynamic Sitting Balance Ability Fair Standing Balance and Reactions Static Standing Balance Ability Fair Dynamic Standing Balance Ability Fair Device Used FWW M5 PT-IP Objective Assessments Start: 09/01/21 12:47 Freq: NEEDED Status: Active Protocol: Document 09/01/21 09:45 AB (Rec: 09/01/21 13:27 AB [id number]) Orientation Orientation/Cognition Level of Alertness Alert Orientation Name,Place,Situation Language Function Ability Hard of Hearing Safety Awareness Decreased Safety Awareness Memory Description Short Term Impaired Gross Range of Motion Lower Extremity ROM Assessment Within Functional Limits Strength Lower Extremity Strength Assessment Right Impaired Hip 3+/5 Knee 4-/5 Coordination Assessment Gross Coordination Gross Coordination WNL Sensation Assessment Sensation Gross Sensation WNL M6 PT-IP Treatment Start: 09/01/21 12:47 Freq: NEEDED Status: Active Protocol: Document 09/01/21 09:45 AB (Rec: 09/01/21 13:27 AB [id number]) Physical Therapy Treatment Education Education Provided Precautions,Weight Bearing Status,Post-Op Packet,Safety M7 PT-IP Assessment and Plan Start: 09/01/21 12:47 Freq: NEEDED Status: Active Protocol: Document 09/01/21 09:45 AB (Rec: 09/01/21 13:27 AB [email or web address]) PT Summary Assessment and Plan Potential Rehabilitation Potential Fair Status of Condition at Evaluation Stable Summary Impairments Pain,ROM,Strength,Balance, Coordination,Sensation,Tone, Cognition,Bed Mobility, Transfers,Gait,Activity Tolerance Assessment Summary pt requiring min to mod A with mobility and needs cues for hip precautions. caregiver training set up for tomorrow at 1030 am. pt will also need HHPT. Goals Bed Mobility Goal Independent Transfer Goal Independent,Front Wheeled Walker Gait Goal Independent,Front Wheel Walker Gait Distance 250 Other Goals ambulation using standard walker 250 ft mod I Days to Meet Goals 5 Frequency of Treatment Frequency Of Treatment Twice a Day Treatment Plan Physical Therapy Treatment Plan Bed Mobility Training,Transfer Training,Gait Training, Therapeutic Exercise,Balance Retraining,Post Op Education, Discharge Planning,Hot or Cold Pack,Neuromuscular Re-ed, Coordination Retraining,Manual Therapy Precautions Posterior Hip Precautions No Hip Flexion > 90 degrees,No Hip Internal Rotation,No Hip Adduction Weight Bearing Status Weight Bearing Status Weight Bear as Tolerated Allowed Weight Bearing Amount (enter % RLE WBAT or #) (%) Recommendations To Nursing Amount of Assist Needed 1 Person Assist Discharge Recommendations PT Discharge Recommendations Home with Assistance,Home Health Equipment Needed for Home Before FWW if not safe with std Discharge walker Transportation Needs at Discharge Private Vehicle
[2021-09-01] MEDS: LOSARTAN 50 MG TABLET PO (09:58)
[2021-09-01] MEDS: MUPIROCIN 22 GM OINT 1 APPLIC TOP (12:00)
[2021-09-01] MEDS: CLOTRIMAZOLE/BETAMETHASONE CRM 15 GM 1 APPLIC TOP ×2 (12:00→21:14)
--- NOTE | 2021-09-01 14:25 | PT.IPTN ---
Current Diagnoses Hypo-osmolality and hyponatremia (08/30/21) Fracture of unspecified part of neck of unspecified femur, initial encounter for closed fracture (08/30/21) Surgery Performed Operation Date: 08/31/21 11:00 Actual Procedures p Hip Hemiarthroplasty(Right) - Lissette Paiz MD Physical Therapy Treatment Note M2 PT-IP Current Condition Start: 09/01/21 12:47 Freq: NEEDED Status: Active Protocol: Document 09/01/21 09:45 AB (Rec: 09/01/21 13:27 AB [email or web address]) Physical Therapy Current Condition Current Condition Evaluation Date 09/01/21 Treatment Diagnosis R hip fx s/o hemiarthroplasty, difficulty in walking Onset Date 08/30/21 M3 PT-IP Subjective Start: 09/01/21 12:47 Freq: NEEDED Status: Active Protocol: Document 09/01/21 14:25 AB (Rec: 09/01/21 15:57 AB [email or web address]) Subjective Physical Therapy Visit Type Type Treatment Note Visit Start Time 14:25 Visit Stop Time 15:00 Total Visit Minutes 35 Number of 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 0 Physical Therapy Visit Comments Patient Comments agreeable to do PT M4 PT-IP Mobility and Gait Start: 09/01/21 12:47 Freq: NEEDED Status: Active Protocol: Document 09/01/21 14:25 AB (Rec: 09/01/21 15:57 AB [email or web address]) PT-Bed Mobility Assessment Supine to Sit Supine to Sit Standby Assistance Sit to Supine Sit to Supine Standby Assistance PT-Transfer Assessment Sit to and From Stand Sit to and from Stand Contact Guard Assistance,1 Person Assistance,Use of Upper Extremities Equipment Transfer Assistive Device Gait Belt,Front Wheeled Walker Orthotic/Prosthetic Devices or Brace: No Transfers Transfer Destination Bed,Chair Transfer Technique ambulated Transfer Ability Level of Assist Contact Guard Assistance,1 Person Assistance,Use of Upper Extremities Comments Mobility Comments reviewed hip precautions and pt continues to require cues to recall. completed supine to sit SBA and cues. completed sit to stand CGA and cues for hip precautions. ambulated in room using fWW CGA ~ 40 ft. Pt sat on chair. education on safety and techniques. completed sit to stand from the chair CGA and cues and transferred to EOB using FWW CGA. continues to require cues for hip precautions. completed sit to stand from EOB x 3 SBA to CGA initially requiring cues but afterwards able to complete without cues. pt completed sit to supine SBA and cues for techniques. repeated x 2 and completed with SBA. pt requested to stay in bed. positioned in bed. call light and table placed within reach. Caregiver training set up for tomorrow at 1030am. also informed pt to ask her daughter to bring his std walker and agreed. Gait Assessment Gait Gait Assistance Required: Contact Guard Assist Distance (Feet) 40 Able to Maintain Weight Bearing Status Yes During Gait Assistive Devices Assistive Device Gait Belt,Front Wheeled Walker Orthotic/Prosthetic Devices or Brace: No Gait Deviations General Gait Pattern Antalgic,Decreased Stride Length,Decreased Feet Clearance Factors Limiting Gait Function Factors Limiting Gait Function Decreased Activity Tolerance, Decreased Strength,Limited Range of Motion,Pain,Poor Balance,Poor Safety Awareness M5 PT-IP Objective Assessments Start: 09/01/21 12:47 Freq: NEEDED Status: Active Protocol: Document 09/01/21 09:45 AB (Rec: 09/01/21 13:27 AB [email or web address]) Orientation Orientation/Cognition Level of Alertness Alert Orientation Name,Place,Situation Language Function Ability Hard of Hearing Safety Awareness Decreased Safety Awareness Memory Description Short Term Impaired Gross Range of Motion Lower Extremity ROM Assessment Within Functional Limits Strength Lower Extremity Strength Assessment Right Impaired Hip 3+/5 Knee 4-/5 Coordination Assessment Gross Coordination Gross Coordination WNL Sensation Assessment Sensation Gross Sensation WNL M6 PT-IP Treatment Start: 09/01/21 12:47 Freq: NEEDED Status: Active Protocol: Document 09/01/21 14:25 AB (Rec: 09/01/21 15:57 AB [id number]) Physical Therapy Treatment Education Education Provided Precautions,Safety M7 PT-IP Assessment and Plan Start: 09/01/21 12:47 Freq: NEEDED Status: Active Protocol: Document 09/01/21 14:25 AB (Rec: 09/01/21 15:57 AB [email or web address]) PT Summary Assessment and Plan Potential Rehabilitation Potential Good Summary Impairments Pain,ROM,Strength,Balance, Coordination,Sensation,Tone, Cognition,Bed Mobility, Transfers,Gait,Activity Tolerance Progress Towards Goals Slow Progress - Other Assessment Summary pt requiring SBA to CGA with mobility using FWW but requires cues for hip precautions. Caregiver training set up for tomorrow at 1030 am. will continue to assess progress. pt will require HHPT. Goals Bed Mobility Goal Independent Transfer Goal Independent,Front Wheeled Walker Gait Goal Independent,Front Wheel Walker Gait Distance 250 Other Goals ambulation using standard walker 250 ft mod I Days to Meet Goals 5 Frequency of Treatment Frequency Of Treatment Twice a Day Treatment Plan Physical Therapy Treatment Plan Bed Mobility Training,Transfer Training,Gait Training, Therapeutic Exercise,Balance Retraining,Post Op Education, Discharge Planning,Hot or Cold Pack,Neuromuscular Re-ed, Coordination Retraining,Manual Therapy Precautions Posterior Hip Precautions No Hip Flexion > 90 degrees,No Hip Internal Rotation,No Hip Adduction Weight Bearing Status Weight Bearing Status Weight Bear as Tolerated Allowed Weight Bearing Amount (enter % RLE WBAT or #) (%) Recommendations To Nursing Amount of Assist Needed 1 Person Assist Discharge Recommendations PT Discharge Recommendations Home with Assistance,Home Health Equipment Needed for Home Before FWW if not safe with std Discharge walker Transportation Needs at Discharge Private Vehicle
[2021-09-01] MEDS: dilTIAZem CD 120 MG CAP PO (17:00)
[2021-09-02 01:00] VITALS: BP 144/55; PULSE 72; RESP 18; TEMP 36.9; O2SAT 97
[2021-09-02 03:36] VITALS: BP 157/83; PULSE 76; RESP 18; TEMP 36.5; O2SAT 98
[2021-09-02 06:16] LABS: Alanine Aminotransferase 17 IU/L (<50); Albumin 2.9 g/dL (3.5-5.0); Albumin Globulin Ratio 1.1 (1.0-2.8); Alkaline Phosphatase 61 U/L (38-126); Aspartate Aminotransferase 35 IU/L (17-59); BUN Creatinine Ratio 21.5 (6-22); Bilirubin Total 0.8 mg/dL (0.2-1.3); Blood Urea Nitrogen 20 mg/dL (9-20); Calcium 8.5 mg/dL (8.4-10.2); Carbon Dioxide 30 mmol/L (22-32); Chloride 96 mmol/L (98-107); Estimated Glomerular Filt Rate > 60.0 mL/min (>60); Globulin 2.6 g/dL (1.7-4.1); Glucose 106 mg/dL (80-110); HEMOLYSIS < 15 (0-50); Potassium 4.2 mmol/L (3.4-5.1); Sodium 127 mmol/L (137-145); Total Protein 5.5 g/dL (6.3-8.2)
[2021-09-02 06:18] LABS: Add Manual Diff / Slide Review NO; Basophils Absolute Auto 100 /uL (0-100); Basophils Percent Auto 0.7 % (0-2); Eosinophils Absolute Auto 900 /uL (0-450); Eosinophils Percent Auto 9.9 % (2-4); Hematocrit 28.8 % (41-53); Hemoglobin 9.9 g/dL (13.5-17.5); Lymphocytes Absolute Auto 700 /uL (1100-4500); Lymphocytes Percent Auto 7.3 % (25-40); Mean Corpuscular HGB Conc 34.4 % (30-36); Mean Corpuscular Hemoglobin 32.5 PG (26-34); Mean Corpuscular Volume 94.4 fL (80-100); Monocytes Absolute Auto 600 /uL (0-900); Neutrophils Absolute Auto 7200 /uL (1500-7000); Neutrophils Percent Auto 76.1 % (50-75); Platelet Count 360 X10^3/uL (150-400); Red Blood Cell Count 3.06 X10^6/uL (4.5-5.9); White Blood Cell Count 9.5 X10^3/uL (4.5-11.0)
[2021-09-02 07:30] VITALS: BP 114/77; PULSE 79; RESP 18; TEMP 36.8; O2SAT 95
[2021-09-02] MEDS: ASPIRIN EC 81 MG TABLET PO (09:19)
[2021-09-02] MEDS: DOCUSATE 100 MG CAPSULE PO (09:19)
[2021-09-02] MEDS: dilTIAZem CD 120 MG CAP PO (09:19)
[2021-09-02] MEDS: ACETAMINOPHEN 325 MG TABLET 650 MG PO (09:19)
[2021-09-02] MEDS: IBUPROFEN 400 MG TABLET PO (09:19)
--- NOTE | 2021-09-02 09:19 | PM.DS.1 ---
History of Present Illness History of Present Illness Date Patient Seen: 09/02/21 Time Patient Seen: 09:19 Chief complaint: Hip pain Narrative: Patient states his hip pain is mild. Denies fever or chills. No nausea or vomiting. Patient's daughter and son will be available to assist him at home. Discharge Providers Provider Date of admission: 08/30/21 22:42 Discharge Date: 09/02/21 Primary care physician: Melina Lee MD Consults: 08/30/21 23:03 Consult to Discharge Planning Routine Comment: Consult to Occupational Therapy Evaluate & Treat Comment: Physician Instructions: Evaluate and treat Consult to Physical Therapy Evaluate & Treat Comment: Physician Instructions: Evaluate and Treat Consult to Physician Routine Comment: Consulting Provider: Lissette Paiz Reason for consultation: R hip fx Has provider been notified: Yes 08/31/21 06:55 Consult to Dietitian, Adult Routine Comment: Reason For Exam: low albumin 08/31/21 09:55 Consult to Anesthesiology Routine Comment: Consulting Provider: Anesthesiologist Reason for consultation: Regional block for post operative pain control Has provider been notified: Yes 08/31/21 15:50 Consult to Discharge Planning Routine Comment: Consult to Physical Therapy Evaluate & Treat Comment: Physician Instructions: post op JESSIKA protocol Consult to Respiratory Therapy Evaluate & Treat Comment: Physician Instructions: Evaluate and treat Discharge provider: George Parker PA-C Summary Hospital Course Discharge Diagnosis: Right femoral neck fracture Hospital Course: Right hip unipolar Same procedure as scheduled: Yes Indications: This 86-year-old who fell and sustained a right femoral neck fracture.? Small the operating room for right hip unipolar.? The procedure alternatives risks benefits and complications were discussed in detail. Surgeon: Lissette Paiz Platform Builder: Sabina Drummond Anesthesia Type: General Operative Notes Findings: Displaced right femoral neck fracture, adequate stability, adequate bone Closure Type: primary Specimen(s): none sent Prosthetic devices, grafts, tissues, transplants, or devices: Paiz and Nephew Synergy cemented size 13 synergy Paiz and Nephew, size 50 unipolar head, +0 neck Applied: drain(s) Estimated Blood Loss (mL): 250 Blood products transfused: none Patient admitted to the hospital for right femoral neck fracture. Patient consented for unipolar hip, right. Patient taken operating room on August 31, 2021. Patient back in his room recovering well as in stable condition. Patient has a son and daughter at home to assist him. Patient will be discharged home today in stable condition. Status at Discharge Cognitive/behavioral status at discharge: at baseline, oriented Functional status at discharge: uses cane/walker Overall status at discharge: patient is progressing back to baseline Exam Vital Signs (past 8 hours): - 09/02/21 03:36 Temperature 97.7 F Pulse Rate 76 Respiratory Rate 18 Blood Pressure 157/83 H Pulse Oximetry 98 Oxygen Delivery Method Room Air Oxygen Flow Rate 0 Narrative Exam Narrative: Pleasant 86-year-old male resting comfortably in bed in no apparent distress. Dressing is Clean, dry, intact.. Neurovascular status is intact distal right lower extremity. Const General: cooperative Objective Labs Result Diagrams: 09/02/21 05:19 09/02/21 05:19 Labs: Laboratory Results - last 24 hr 09/02/21 09/02/21 05:19 05:19 WBC 9.5 RBC 3.06 L Hgb 9.9 L Hct 28.8 L MCV 94.4 MCH 32.5 MCHC 34.4 RDW 16.0 H Plt Count 360 Neut % (Auto) 76.1 H Lymph % (Auto) 7.3 L [place] % (Auto) 6.0 Eos % (Auto) 9.9 H Baso % (Auto) 0.7 Neut # (Auto) 7200 H Lymph # (Auto) 700 L [place] # (Auto) 600 Eos # (Auto) 900 H Baso # (Auto) 100 Sodium 127 L Potassium 4.2 Chloride 96 L Carbon Dioxide 30 BUN 20 Creatinine 0.93 Estimated GFR > 60.0 BUN/Creatinine Ratio 21.5 Glucose 106 Calcium 8.5 Total Bilirubin 0.8 AST 35 ALT 17 Alkaline Phosphatase 61 Total Protein 5.5 L Albumin 2.9 L Globulin 2.6 Albumin/Globulin Ratio 1.1 PFSH Social History household members: none Smoking Status: Former smoker alcohol intake: current Discharge Assessment & Plan Assessment and Plan Assessment: Patient progressing as expected status post right hip unipolar Plan of Treatment: Weight-bearing as tolerated Posterior hip precautions Multimodal pain management Aspirin 81 mg b.i.d. Discharge home today after physical therapy. Discharge Plan Discharge Plan Patient Disposition: Home Discharge orders & Medications Prescriptions: New acetaminophen 325 mg Tablet 650 mg PO TID Qty: 60 0RF polyethylene glycol 3350 17 gram Powder In Packet 17 gm PO DAILY PRN (Reason: Constipation) Qty: 20 0RF aspirin 81 mg Tablet,Delayed Release (Dr/Ec) 81 mg PO BID Qty: 60 0RF ibuprofen 400 mg Tablet 400 mg PO Q4HR Qty: 60 0RF docusate sodium 100 mg Capsule 100 mg PO BID Qty: 30 0RF oxycodone 5 mg Tablet 5 mg PO Q3HR PRN (Reason: Pain, Moderate (4-6)) Qty: 40 0RF Continued telmisartan 40 mg tablet 40 mg PO DAILY 0RF Follow up/Referrals: Melina Lee MD [Primary Care Provider] - Lissette Paiz MD [Physician] - (2 weeks) Diet/Activity/Treatments Diet: Diet as Tolerated Activity: Weight-bearing as tolerated, posterior hip precautions Cold/Heat Therapy: Ice to hip as needed Skin/Wound/Dressing Care Report to your healthcare provider any signs of infection, such as:: chills, fever, increased pain, unusual drainage and unusual redness Dressing: Keep dressing clean and dry Visit Report/Discharge Packet Instructions: DI for Heart Failure, DI for Hip Replacement, DI for Prescription Opioid Use Stand Alone Forms: Surgery Discharge Discharge Data Primary Care Provider: Melina Lee Quality VTE Deep Vein Thrombosis/Pulmonary Embolism Present on Admission: No
--- NOTE | 2021-09-02 11:08 | PM.PN.1 ---
Subjective Subjective Date Patient Seen: 09/02/21 Time Patient Seen: 11:08 Interval history: Patient feeling well. Orthopedist discharge home. No other changes. Feeling well. Exam Vital Signs (past 8 hours): - 09/02/21 03:36 09/02/21 07:30 Temperature 97.7 F 98.3 F Pulse Rate 76 79 Respiratory Rate 18 18 Blood Pressure 157/83 H 114/77 Pulse Oximetry 98 95 Oxygen Delivery Method Room Air Oxygen Flow Rate 0 Narrative Exam Narrative: Alert male sitting in chair no acute distress Lungs are clear heart regular rate and rhythm Objective Labs Result Diagrams: 09/02/21 05:19 09/02/21 05:19 Labs: Laboratory Results - last 24 hr 09/02/21 09/02/21 05:19 05:19 WBC 9.5 RBC 3.06 L Hgb 9.9 L Hct 28.8 L MCV 94.4 MCH 32.5 MCHC 34.4 RDW 16.0 H Plt Count 360 Neut % (Auto) 76.1 H Lymph % (Auto) 7.3 L [place] % (Auto) 6.0 Eos % (Auto) 9.9 H Baso % (Auto) 0.7 Neut # (Auto) 7200 H Lymph # (Auto) 700 L [place] # (Auto) 600 Eos # (Auto) 900 H Baso # (Auto) 100 Sodium 127 L Potassium 4.2 Chloride 96 L Carbon Dioxide 30 BUN 20 Creatinine 0.93 Estimated GFR > 60.0 BUN/Creatinine Ratio 21.5 Glucose 106 Calcium 8.5 Total Bilirubin 0.8 AST 35 ALT 17 Alkaline Phosphatase 61 Total Protein 5.5 L Albumin 2.9 L Globulin 2.6 Albumin/Globulin Ratio 1.1 [facility] Social History household members: none Smoking Status: Former smoker alcohol intake: current Assessment & Plan Assessment & Plan narrative: hyponatremia. Stable at 127. Patient has had a chronic baseline in the 130s and probably trending towards normal. Will need to be followed with Dr. Lee's office in 2 weeks. Hypertension. Seems to doing well. Mildly elevated but trending towards normal. Will follow as outpatient. Certainly in low risk for significant problem. Anemia. Acute probably secondary to surgical intervention. Will need to be followed as outpatient. Repeat 4-6 weeks would recommend iron once a day. Protein malnutrition nutritional counseling done. Spongiotic dermatitis. As per usual treatment. Disposition discharge home per [facility] home health. Recommend iron once a day. Discussed with patient. Time Spent With Patient Critical Care time: I spent a total of [] minutes of critical care time on this patient's care today; this time is exclusive of procedural time. Quality VTE Deep Vein Thrombosis/Pulmonary Embolism Present on Admission: No
--- NOTE | 2021-09-02 11:13 | PT.IPTN ---
Current Diagnoses Hypo-osmolality and hyponatremia (08/30/21) Fracture of unspecified part of neck of unspecified femur, initial encounter for closed fracture (08/30/21) Surgery Performed Operation Date: 08/31/21 11:00 Actual Procedures p Hip Hemiarthroplasty(Right) - Lissette Paiz MD Physical Therapy Treatment Note M2 PT-IP Current Condition Start: 09/01/21 12:47 Freq: NEEDED Status: Active Protocol: Document 09/01/21 09:45 AB (Rec: 09/01/21 13:27 AB [id number]) Physical Therapy Current Condition Current Condition Evaluation Date 09/01/21 Treatment Diagnosis R hip fx s/o hemiarthroplasty, difficulty in walking Onset Date 08/30/21 M3 PT-IP Subjective Start: 09/01/21 12:47 Freq: NEEDED Status: Active Protocol: Document 09/02/21 10:47 KS (Rec: 09/02/21 12:47 KS [id number]) Subjective Physical Therapy Visit Type Type Treatment Note Visit Start Time 10:47 Visit Stop Time 11:13 Total Visit Minutes 26 Notes Pts daughter present for caregiver training. 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 Physical Therapy Visit Comments Patient Comments agreeable to do PT M4 PT-IP Mobility and Gait Start: 09/01/21 12:47 Freq: NEEDED Status: Active Protocol: Document 09/02/21 10:47 KS (Rec: 09/02/21 12:47 KS [id number]) PT-Bed Mobility Assessment Supine to Sit Supine to Sit Standby Assistance Sit to Supine Sit to Supine Standby Assistance Scooting Scooting to Edge of Bed Standby Assistance PT-Transfer Assessment Sit to and From Stand Sit to and from Stand Contact Guard Assistance,1 Person Assistance,Use of Upper Extremities Equipment Transfer Assistive Device Gait Belt,Front Wheeled Walker Orthotic/Prosthetic Devices or Brace: No Transfers Transfer Destination Bed,Chair Transfer Technique ambulated w/ FWW Transfer Ability Level of Assist Contact Guard Assistance,1 Person Assistance,Use of Upper Extremities Comments Mobility Comments Pt in chair w/ daughter in room upon arrival from therapy and able to recall 3/3 hip precautions. Demonstrated gait belt application to pts daughter who was able to succesfully complete. Demonstrated guarding to pts daughter for pt sit<>stand which she understood and he completed SBA. Pt then ambulated ~[address] w / FWW and pts daughter providing appropriate CGA. Cued pt for equal step length to normalize gait which he was able to complete w/o increase in pain. Pt then returned to room and bed and performed bed mobility which he completed SBA and then he transferred back to chair / pts daughter providing CGA. Reviewed exercises and tips for getting safely into car which pt and daughter verbalize understanding of. Pt leftin room w/ all needs in reach. Gait Assessment Gait Gait Assistance Required: Contact Guard Assist Distance (Feet) 100 Able to Maintain Weight Bearing Status Yes During Gait Assistive Devices Assistive Device Gait Belt,Front Wheeled Walker Orthotic/Prosthetic Devices or Brace: No Gait Deviations General Gait Pattern Antalgic,Decreased Stride Length,Decreased Feet Clearance Factors Limiting Gait Function Factors Limiting Gait Function Decreased Activity Tolerance, Decreased Strength,Limited Range of Motion,Pain,Poor Balance,Poor Safety Awareness Comments Gait Comments Please refer to mobilty section for details. Stair Climbing Assessment Comments Stair Climbing Comments No stairs at home. PT-Balance Assessment Sitting Balance and Reactions Static Sitting Balance Ability Good Dynamic Sitting Balance Ability Fair Standing Balance and Reactions Static Standing Balance Ability Fair Dynamic Standing Balance Ability Fair Device Used FWW M5 PT-IP Objective Assessments Start: 09/01/21 12:47 Freq: NEEDED Status: Active Protocol: Document 09/01/21 09:45 AB (Rec: 09/01/21 13:27 AB [id number]) Orientation Orientation/Cognition Level of Alertness Alert Orientation Name,Place,Situation Language Function Ability Hard of Hearing Safety Awareness Decreased Safety Awareness Memory Description Short Term Impaired Gross Range of Motion Lower Extremity ROM Assessment Within Functional Limits Strength Lower Extremity Strength Assessment Right Impaired Hip 3+/5 Knee 4-/5 Coordination Assessment Gross Coordination Gross Coordination WNL Sensation Assessment Sensation Gross Sensation WNL M6 PT-IP Treatment Start: 09/01/21 12:47 Freq: NEEDED Status: Active Protocol: Document 09/02/21 10:47 KS (Rec: 09/02/21 12:47 KS [id number]) Physical Therapy Treatment Exercises Exercises Ankle Pumps,Gluteal Sets,Quad Sets,Supine Hip Abduction Education Education Provided Precautions,Safety M7 PT-IP Assessment and Plan Start: 09/01/21 12:47 Freq: NEEDED Status: Active Protocol: Document 09/02/21 10:47 KS (Rec: 09/02/21 12:47 KS [id number]) PT Summary Assessment and Plan Potential Rehabilitation Potential Good Summary Impairments Pain,ROM,Strength,Balance, Coordination,Sensation,Tone, Cognition,Bed Mobility, Transfers,Gait,Activity Tolerance Assessment Summary Pt SBA for all bed mobility and CGA for transfers and ambulation w/ FWW. Completed caregiver training w/ pts daughter who was able to apply gait belt and provide appropriate cues and assist w/ all mobility and transfers. Reveiwed exercises and tips for getting into and out of car. Able to ambulate ~100 ft w/ FWW and gait normalized/ equal step length w/ cues. Pt able to recall all precautions . Pts daughter will acquire FWW for pt. He will benefit from outpatient rehab or HHPT to improve strength, balance, and functional mobility. Goals Bed Mobility Goal Independent Transfer Goal Independent,Front Wheeled Walker Gait Goal Independent,Front Wheel Walker Gait Distance 250 Other Goals ambulation using standard walker 250 ft mod I Days to Meet Goals 5 Frequency of Treatment Frequency Of Treatment Twice a Day Treatment Plan Physical Therapy Treatment Plan Bed Mobility Training,Transfer Training,Gait Training, Therapeutic Exercise,Balance Retraining,Post Op Education, Discharge Planning,Hot or Cold Pack,Neuromuscular Re-ed, Coordination Retraining,Manual Therapy Precautions Posterior Hip Precautions No Hip Flexion > 90 degrees,No Hip Internal Rotation,No Hip Adduction Weight Bearing Status Weight Bearing Status Weight Bear as Tolerated Allowed Weight Bearing Amount (enter % RLE WBAT or #) (%) Recommendations To Nursing Amount of Assist Needed 1 Person Assist Discharge Recommendations PT Discharge Recommendations Home with Assistance,Home Health,Outpatient PT Equipment Needed for Home Before FWW if not safe with std Discharge walker. Pts daughter will obtain FWW> Transportation Needs at Discharge Private Vehicle
--- NOTE | 2021-09-02 12:08 | CM.DPC ---
DCP continued: Patient would like services at [place] Dr. Franco signed F2F and CM faxed it and clinicals and DC summary to [facility]. MÓNICA spoke with Gabriela who stated they will accept the patient and see them on saturday. MÓNICA spoke with vicky from [facility] as well and she said she would follow up and just make sure everything is set up. CM let the patients nurse know. Amanda Paiz RNwreath machine tender
== END 2021-09-02 12:30 | disposition home health service (06) | DRG 522 ==
LOC: ED 22:38 → AC 22:43
PROVIDERS: Admitting Provider Student in an Organized Health Care Education/Training Program; Emergency Provider Emergency Medicine; PCP Student in an Organized Health Care Education/Training Program; Referring Provider Orthopaedic Surgery; Visit Provider Student in an Organized Health Care Education/Training Program
PROC: 0SRR0JZ Replacement of Right Hip Joint, Femoral Surface with Synthetic Substitute, Open Approach (ICD-10-PCS; CPT 27125; principal; 2021-08-31 11:00)
DX: S72.001A Fracture of unspecified part of neck of right femur, initial encounter for closed fracture (principal); E87.1 Hypo-osmolality and hyponatremia; E46 Unspecified protein-calorie malnutrition; L30.8 Other specified dermatitis; Z68.25 Body mass index [BMI] 25.0-25.9, adult; I10 Essential (primary) hypertension; W18.30XA Fall on same level, unspecified, initial encounter; Z87.891 Personal history of nicotine dependence; Z20.822 Contact with and (suspected) exposure to COVID-19; S72.031A Displaced midcervical fracture of right femur, initial encounter for closed fracture; M51.36 Other intervertebral disc degeneration, lumbar region; M47.816 Spondylosis without myelopathy or radiculopathy, lumbar region; I70.0 Atherosclerosis of aorta; M25.551 Pain in right hip; M25.561 Pain in right knee
CPT/HCPCS: 36415; 72100; 73502; 73562; 80048; 80053; 82607; 82728; 82746; 83540; 84466; 85025; 85045; 87635; 94760; 96374; 96375; 97116; 97161; 97530; 99283; 99284; C1776; C9803; C9290; J0171; J0690; J1100; J1885; J2250; J2270; J2405; J2704; J3010

== ENCOUNTER → 2024-10-15 12:07 | Outpatient (CLI) | payer MEDICARE, SELFPAY ==
--- NOTE | 2024-10-15 12:12 | DI.RAD.S_ITS ---
PROCEDURE: XR CHEST 2V INDICATIONS: CHRONIC COUGH TECHNIQUE: 2 views of the chest were acquired. COMPARISON: None. FINDINGS: Surgical changes and devices: None. Lungs and pleura: Interstitial prominence bilaterally. Mediastinum: Mediastinal contours are normal. Heart size is normal. Bones and chest wall: No suspicious bony abnormalities. Soft tissues appear unremarkable. IMPRESSION: Interstitial prominence bilaterally of uncertain chronicity. No consolidations. No priors are available for comparison. Further evaluation with CT or short interval imaging follow-up may be obtained. Dictated by: Nuris Tsai M.D. on 10/15/2024 at 12:52 Approved by: Nuris Tsai M.D. on 10/15/2024 at 12:53
== END ==
LOC: RAD 12:11
PROVIDERS: PCP Student in an Organized Health Care Education/Training Program; Referring Provider Family Medicine; Visit Provider Family Medicine
DX: R05.3 Chronic cough (principal)
CPT/HCPCS: 71046